=== PATIENT | male | born 1985 | race Two or more races ===

== ENCOUNTER 2016-11-11 06:35 | Outpatient (CLI) | payer OTHER ==
[~2016-11-11 06:35] MED LIST: BACL10TA2 PO; COPA1INJ SC; GABA-283 PO; ZITHTAB PO
[2016-11-11] MEDS ORDERED: methylPREDNISolone 1,000 MG, VIAL MATE ADAPTER 1 EACH in D5W 250 ML IV ONE (06:45)
[2016-11-12] MEDS ORDERED: METH1TAB40 PO (08:26)
== END 2016-11-11 08:15 | disposition home or self-care (01) ==
LOC: M INFU 06:35
PROVIDERS: ATTEND Psychiatry & Neurology Neurology
DX: G35 Multiple sclerosis (principal); F17.210 Nicotine dependence, cigarettes, uncomplicated; Z79.899 Other long term (current) drug therapy

== ENCOUNTER 2016-11-12 07:08 | Outpatient (CLI) | payer OTHER ==
[2016-11-12] MEDS ORDERED: methylPREDNISolone 1,000 MG, VIAL MATE ADAPTER 1 EACH in D5W 250 ML IV ONE (08:00)
[2016-11-12] MEDS ORDERED: METH1TAB40 PO (08:26)
== END 2016-11-12 08:30 | disposition home or self-care (01) ==
LOC: M INFU 07:08
PROVIDERS: ATTEND Psychiatry & Neurology Neurology
DX: G35 Multiple sclerosis (principal); F17.210 Nicotine dependence, cigarettes, uncomplicated; Z79.899 Other long term (current) drug therapy

== ENCOUNTER 2016-11-13 07:00 | Outpatient (CLI) | payer OTHER ==
[~2016-11-13] VITALS: Ht 167.6 cm; Wt 70.5 kg
[~2016-11-13 07:00] MED LIST changes: +METH1TAB40 PO; +methylPREDNISolone 1,000 MG, VIAL MATE ADAPTER 1 EACH in D5W 250 ML IV ONE
== END 2016-11-13 08:25 | disposition home or self-care (01) ==
LOC: M INFU 07:00
PROVIDERS: ATTEND Psychiatry & Neurology Neurology
DX: G35 Multiple sclerosis (principal); F17.210 Nicotine dependence, cigarettes, uncomplicated; Z79.899 Other long term (current) drug therapy

== ENCOUNTER 2016-11-14 07:03 | Outpatient (CLI) | payer OTHER ==
[~2016-11-14] VITALS: Ht 167.6 cm; Wt 70.5 kg
== END 2016-11-14 08:30 | disposition home or self-care (01) ==
LOC: M INFU 07:03
PROVIDERS: ATTEND Psychiatry & Neurology Neurology
DX: G35 Multiple sclerosis (principal); F17.210 Nicotine dependence, cigarettes, uncomplicated; Z79.899 Other long term (current) drug therapy

== ENCOUNTER 2016-11-15 06:52 | Outpatient (CLI) | payer OTHER ==
[~2016-11-15] VITALS: Ht 167.6 cm; Wt 70.5 kg
== END 2016-11-15 08:15 | disposition home or self-care (01) ==
LOC: M INFU 06:52
PROVIDERS: ATTEND Psychiatry & Neurology Neurology
DX: G35 Multiple sclerosis (principal); F17.210 Nicotine dependence, cigarettes, uncomplicated; Z79.899 Other long term (current) drug therapy

== ENCOUNTER → 2017-02-04 | Outpatient (CLI) | payer OTHER, MEDICAID ==
[~2017-02-04] MED LIST changes: -methylPREDNISolone 1,000 MG, VIAL MATE ADAPTER 1 EACH in D5W 250 ML IV ONE
--- NOTE | 2017-02-25 01:59 | ECWPNPC ---
PATIENT NAME: STEVE OCASIO : 1985 GENDER: MALE VISIT DATE: 02/04/2017 DISCHARGE DATE: 02/04/17 1400 VISIT LOCKED DATE TIME: PHYSICIAN: MESFIN WRIGHT RESOURCE: MESFIN WRIGHT REASON FOR APPOINTMENT 1. BACK PAIN HISTORY OF PRESENT ILLNESS NEW PATIENT CONSULT: WHEN DID YOUR PAIN FIRST START? . BRIEFLY DESCRIBE HOW YOUR PAIN STARTED? . HOW DOES YOUR PAIN CHANGE WITH TIME? . DOES YOUR PAIN AWAKEN YOU FROM SLEEP? . HOW MANY HOURS OF SLEEP DO YOU NORMALLY GET? . ANY DIAGNOSTIC TESTING? . FACILITY WHERE TESTS WERE DONE? ____. PAIN TREATMENT TREATMENT YES CANCER HAVE YOU EVER HAD ANY TYPE OF CANCER?NO NO. 32 Y/O MALE HERE PER REFERRAL OF DR. 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 PAIN SCREENING: PATIENT HAS A COMPLAINT OF ACUTE OR CHRONIC PAIN :YES FALL RISK SCREENING: SCREENING :NO FALLS IN THE PAST YEAR MILLER INVENTORY: QUESTIONNAIRE ASSESSEDYES SCORE VALUE CALCULATED YES SCORE:17 CURRENT MEDICATIONS TAKING GABAPENTIN 400 MG CAPSULE 1 CAPSULE ORALLY THREE TIMES A DAY TAKING BACLOFEN 10 MG TABLET 1 TABLET WITH FOOD OR MILK ORALLY THREE TIMES A DAY TAKING METHOCARBAMOL 500 MG TABLET 2 TABLET ORALLY BID NEEDED TAKING SOLU-MEDROL 500 MG SOLUTION RECONSTITUTED INJECTION , NOTES: TWICE A YEAR IN INFUSIONS TAKING COPAXONE 40 MG/ML SOLUTION PREFILLED SYRINGE 1 ML SUBCUTANEOUS THREE TIMES A WEEK MEDICATION LIST REVIEWED AND RECONCILED WITH THE PATIENT PAST MEDICAL HISTORY MULTIPLE SCLEROSIS BILATERAL LOWER EXTREMITY WEAKNESS LEFT HAND NUMBNESS ALLERGIES N.K.D.A. SURGICAL HISTORY NONE FAMILY HISTORY FATHER: 63 YRS, HAS COPD MOTHER: 61 YRS, HAS MS SOCIAL HISTORY GENERAL: TOBACCO USE ARE YOU A:CURRENT SMOKER HOW MANY CIGARETTES A DAY DO YOU SMOKE?6-10 HOW OFTEN DO YOU SMOKE CIGARETTES?EVERY DAY ARE YOU INTERESTED IN QUITTING?NOT READY TO QUIT COUNSELED THE PATIENT ON SMOKING EFFECTS, EDUCATION [id number]/03/2017 DISCUSSED THE NEED TO STOP SMOKING/ PT IS AWARE OF THE HAZARDS PATIENT COUNSELED ON THE DANGERS OF TOBACCO USE AND URGED TO QUIT:02/04/2017 YES ALCOHOL SCREENING POINTS2 INTERPRETATIONNEGATIVE CAFFEINE CAFFEINE USE?YES HOW OFTEN AND HOW MUCH? COFFEE EVERY DAY GNOSTICIST [id number] EPISCOPAL NO ALEVISM BELIEFS THAT WOULD IMPACT HEALTH CARE. PAIN CLINIC PFS, CLERGY, PUBLIC HEALTH REFERRALS PFS REFERRAL NEEDED?NO CLERGY REFERRAL NEEDED?NO PUBLIC HEALTH REFERRAL NEEDED?NO WAS THE PROVIDER NOTIFIED OF ANY PERTINENT INFO?NO HAS THE PATIENT BEEN EDUCATED REGARDING HIS/HER PLAN OF CARE?YES HAS THE PATIENT BEEN EDUCATED REGARDING PAIN, THE RISK FOR PAIN, THE IMPORTANCE OF EFFECTIVE PAIN MANAGEMENT, AND THE PAIN ASSESSMENT PROCESS?YES PATIENT: ____. ADVANCE DIRECTIVES HEALTH CARE PROXY?NO WOULD YOU LIKE MORE INFORMATION?NO DO YOU HAVE A DNR?NO WOULD YOU LIKE MORE INFORMATION?NO HOSPITALIZATION/MAJOR DIAGNOSTIC PROCEDURE OVERNIGHT IN THE ER 2014 REVIEW OF SYSTEMS REVIEWED BY: PROVIDER: MESFIN RODRIGUEZ . CONSTITUTIONAL: ANY CHANGE IN YOUR MEDICAL CONDITION? NO . CHILLS NO . FEVER NO . INFECTION: DO YOU HAVE NEW INFECTIONS? NO . DO YOU HAVE HISTORY OF MRSA? NO . MUSCULOSKELETAL: ANY NEW PATTERNS OF PAIN OR NUMBNESS? PAIN FROM THE KNEES DOWN . SYTEMIC LUPUS NO . GASTROENTEROLOGY: ANY NEW CHANGE IN BOWEL CONTROL? NO . BARRETTS ESOPHAGUS NO . CIRRHOSIS NO . HEPATITIS NO . LIVER FAILURE NO . ACID REFLUX NO . UNEXPLAINED WEIGHT LOSS NO . GENITOURINARY: ANY NEW CHANGE IN BLADDER CONTROL? NO . IS THERE A CHANCE YOU COULD BE ? NO . HEMATOLOGY/LYMPH: DO YOU TAKE ANY BLOOD THINNERS? (FOR EXAMPLE- COUMADIN, PLAVIX, AGGRENOX, PLATEL, PRADAXA, OR XARELTO) NO . WHEN WAS YOUR LAST DOSE? DATE: TIME: . LOW PLATELET COUNT NO . SICKLE CELL DISEASE NO . VON WILLIEBRANDS NO . FACTOR V LEIDEN NO . THALLASEMIA NO . ANEMIA NO . EASY BRUISING NO . NEUROLOGY: HAVE YOU FALLEN IN THE PAST 6 MONTHS? NO . ANY NEW EXTREMITY NUMBNESS OR WEAKNESS? NO . HEAD INJURY NO . DEMENTIA NO . CEREBRAL PALSY NO . MULTIPLE SCLEROSIS NO . DIZZINESS NO . HEADACHE NO . STROKES NO . VERTIGO NO . CARDIOLOGY: DO YOU HAVE A PACEMAKER OR DEFIBRILLATOR? NO . ANGINA NO . HEART ATTACK NO . HEART SURGERY NO . CONGESTIVE HEART FAILURE/FLUID OVERLOAD NO . CHEST PAIN NO . HIGH BLOOD PRESSURE NO . IRREGULAR HEART BEAT NO . RESPIRATORY: HAVE YOU BEEN SICK IN THE PAST WEEK? NO . FEVER NO . FLU LIKE SYMPTOMS? NO . CPAP NO . BYPAP NO . ASTHMA NO . EMPHYSEMA NO . CHRONIC LUNG DISEASES NO . SHORTNESS OF BREATH ON EXERTION NO . DO YOU USE ANY TYPE OF TOBACCO (SMOKE, SMOKELESS, CHEW)? YES . COUGH NO . SNORING NO . INTEGUMENTARY: DO YOU HAVE ANY RASHES OR OPEN SORES? NO . ALLERGIC/IMMUNO: ARE YOU ALLERGIC TO SHELLFISH OR IV DYE? NO . ANY NEW ALLERGIES? NO . PSYCHIATRIC: DO YOU HAVE THOUGHTS OF HURTING YOURSELF OR SOMEONE ELSE? NO . ARE YOU ABUSED, NEGLECTED, OR IN AN UNSAFE ENVIRONMENT? NO . ENDOCRINOLOGY: ARE YOU DIABETIC? NO . THYROID DISORDER NO . OTHER: DO YOU NEED ANY PRESCRIPTIONS? NO . IF YES, PLEASE LIST: ____ . ANY NEW PROBLEMS WITH YOUR MEDICATIONS? NO . WHEN DID YOU LAST EAT? ____ . WHEN DID YOU LAST DRINK? ____ . WHAT DID YOU LAST DRINK? ____ . NAME OF PERSON DRIVING YOU HOME? ____ . DO YOU HAVE ANY OTHER QUESTIONS OR CONCERNS NO . VITAL SIGNS WT 145 LBS, HT 66 IN, BMI 23.40 INDEX, BP 114/72 MM HG, HR 68 /MIN, RR 18 /MIN, TEMP 99.0 F, OXYGEN SAT % 99%, NA INITIALS SC 12:59, REVIEWED BY: NL. EXAMINATION GENERAL EXAMINATION: GENERAL APPEARANCE:AWAKE,ALERT,WALKS ITH ASSIST OF A CANE. PSYCHAFFECT NORMAL. LUNGS:LUNG PELAEZ ARE CLEAR TO AUSCULTATION BILATERALLY. GOOD MOVEMENT OF AIR. HEART:S1, S2 IN A REGULAR RATE AND RHYTHM. NO SIGNIFICANT MURMURS, RUBS OR GALLOPS NOTED. ABDOMEN:NORMAL WITHOUT TENDERNESS, MASSES, OR MEGALY. LUMBAR SACRAL SPINEMUSCLE STRENGTH TESTING 5/5 BILATERAL LOWER EXTREMITIES.SPECIFIC POINT TENDERNESS OVER RIGHT SIJ. NEUROLOGIC EXAM:DTRS 4/4 BILAT. LOWER EXTREMITIES. DIAGNOSTIC:MRI L/S [id number]-REVIEWED. 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 ADDITIONAL INFORMATION GIVEN.. PROCEDURE CODES FA211 ESTABILISHED PATIENT [facility] CHARGE DISPOSITION & COMMUNICATION FOLLOW UP 4 WEEKS ELECTRONICALLY SIGNED BY MICHAEL LARIOS ON 02/24/2017 AT 07:02 PM EDT DISCLAIMER : THIS IS A VISIT SUMMARY EXTRACTED FROM THE [employer] CHART. IT IS NOT A COPY OF THE [employer] PROGRESS NOTE. CORWIN
== END ==
LOC: M PAIN 13:00
PROVIDERS: ATTEND Nurse Practitioner Family
DX: G89.29 Other chronic pain (principal); M53.3 Sacrococcygeal disorders, not elsewhere classified; G35 Multiple sclerosis; G57.93 Unspecified mononeuropathy of bilateral lower limbs; M54.5 Low back pain; F17.210 Nicotine dependence, cigarettes, uncomplicated; Z79.899 Other long term (current) drug therapy

== ENCOUNTER 2017-05-26 08:52 | Outpatient (CLI) | payer OTHER ==
[2017-05-26] MEDS: methylPREDNISolone 1,000 MG, VIAL MATE ADAPTER 1 EACH in D5W 250 ML IV (09:14)
== END 2017-05-26 10:25 | disposition home or self-care (01) ==
LOC: M INFU 08:52
DX: G35 Multiple sclerosis (principal); Z79.899 Other long term (current) drug therapy
CPT/HCPCS: 96365

== ENCOUNTER 2017-05-27 07:42 | Outpatient (CLI) | payer OTHER ==
[2017-05-27] MEDS: methylPREDNISolone 1,000 MG, VIAL MATE ADAPTER 1 EACH in D5W 250 ML IV (07:50)
== END 2017-05-27 09:15 | disposition home or self-care (01) ==
LOC: M INFU 07:42
DX: G35 Multiple sclerosis (principal); Z79.899 Other long term (current) drug therapy
CPT/HCPCS: 96365

== ENCOUNTER 2017-05-28 07:47 | Outpatient (CLI) | payer OTHER ==
[2017-05-28] MEDS: methylPREDNISolone 1,000 MG, VIAL MATE ADAPTER 1 EACH in D5W 250 ML IV (08:02)
== END 2017-05-28 09:20 | disposition home or self-care (01) ==
LOC: M INFU 07:47
DX: G35 Multiple sclerosis (principal); Z79.899 Other long term (current) drug therapy
CPT/HCPCS: 96365

== ENCOUNTER 2017-05-29 07:22 | Outpatient (CLI) | payer OTHER ==
[2017-05-29] MEDS: methylPREDNISolone 1,000 MG, VIAL MATE ADAPTER 1 EACH in D5W 250 ML IV (07:46)
== END 2017-05-29 09:00 | disposition home or self-care (01) ==
LOC: M INFU 07:22
DX: G35 Multiple sclerosis (principal); Z79.899 Other long term (current) drug therapy
CPT/HCPCS: 96365

== ENCOUNTER 2017-05-30 07:35 | Outpatient (CLI) | payer OTHER ==
[2017-05-30] MEDS: methylPREDNISolone 1,000 MG, VIAL MATE ADAPTER 1 EACH in D5W 250 ML IV (07:47)
== END 2017-05-30 09:00 | disposition home or self-care (01) ==
LOC: M INFU 07:35
DX: G35 Multiple sclerosis (principal); Z79.899 Other long term (current) drug therapy
CPT/HCPCS: 96365

== ENCOUNTER → 2017-06-04 | Outpatient (CLI) | payer OTHER, MEDICAID | LOC: M PAIN 09:30 | DX: G89.29 Other chronic pain (principal); M53.3 Sacrococcygeal disorders, not elsewhere classified; G35 Multiple sclerosis; G57.93 Unspecified mononeuropathy of bilateral lower limbs; F17.200 Nicotine dependence, unspecified, uncomplicated; Z79.899 Other long term (current) drug therapy | CPT/HCPCS: G0463 ==

== ENCOUNTER → 2017-07-28 | Outpatient (REF) | payer OTHER, MEDICAID ==
[2017-07-28 18:11] LABS: ALBUMIN 4.1 GM/DL (3.2-5.2); ALBUMIN/GLOBULIN RATIO 1.32 (1.00-1.93); ALKALINE PHOSPHATASE 58 U/L (45-117); ALT/SGPT 20 U/L (12-78); ANION GAP 7 MEQ/L (8-16); AST/SGOT 11 U/L (7-37); BILIRUBIN,TOTAL 0.8 MG/DL (0.2-1.0); BLOOD UREA NITROGEN 14 MG/DL (7-18); CALCIUM LEVEL 8.7 MG/DL (8.5-10.1); CARBON DIOXIDE LEVEL 28 MEQ/L (21-32); CHLORIDE LEVEL 106 MEQ/L (98-107); CREATININE FOR GFR 0.84 MG/DL (0.70-1.30); FOLATE 7.2 NG/ML; GLOMERULAR FILTRATION RATE > 60.0 (>60); GLUCOSE, FASTING 81 MG/DL (70-100); POTASSIUM SERUM 4.4 MEQ/L (3.5-5.1); SODIUM LEVEL 141 MEQ/L (136-145); TOTAL PROTEIN 7.2 GM/DL (6.4-8.2)
[2017-07-28 18:29] LABS: BASO # 0.1 10^3/uL (0.0-0.2); EOS # 0.1 10^3/uL (0.0-0.50); EOS % 1.1 % (0.0-3.0); HEMATOCRIT 41.8 % (42.0-52.0); IMMATURE GRANULOCYTE % 0.3 % (0-3.0); LYMPH # 2.1 10^3/uL (1.5-4.5); LYMPH % 29.5 % (24.0-44.0); MEAN CORPUSCULAR HEMOGLOBIN 30.2 pg (27.0-33.0); MEAN CORPUSCULAR HGB CONC 33.5 g/dl (32.0-36.5); MEAN CORPUSCULAR VOLUME 90.3 fl (80.0-96.0); MONO # 0.4 10^3/uL (0.0-0.8); MONO % 5.6 % (0.0-5.0); NEUTROPHILS # 4.5 10^3/uL (1.8-7.7); NEUTROPHILS % 62.5 % (36.0-66.0); PLATELET COUNT, AUTOMATED 235 10^3/uL (150-450); RED BLOOD COUNT 4.63 10^6/uL (4.30-6.10); WHITE BLOOD COUNT 7.3 10^3/uL (4.0-10.0)
[2017-07-28 19:44] LABS: VITAMIN B12 LEVEL 479 PG/ML
== END ==
LOC: M LABNEURO 13:51
DX: G35 Multiple sclerosis (principal)

== ENCOUNTER → 2017-08-29 | Outpatient (CLI) | payer OTHER, MEDICAID | END | disposition home or self-care (01) | LOC: M PAIN 11:00 | DX: G89.29 Other chronic pain (principal); M53.3 Sacrococcygeal disorders, not elsewhere classified; G35 Multiple sclerosis; G57.93 Unspecified mononeuropathy of bilateral lower limbs; Z79.899 Other long term (current) drug therapy; F17.210 Nicotine dependence, cigarettes, uncomplicated | CPT/HCPCS: G0463 ==

== ENCOUNTER 2017-10-29 14:50 | Outpatient (CLI) | payer MEDICARE, MEDICAID ==
[2017-10-29] MEDS: methylPREDNISolone 1,000 MG, VIAL MATE ADAPTER 1 EACH in D5W 250 ML IV (15:21)
== END 2017-10-29 17:05 | disposition home or self-care (01) ==
LOC: M INFU 14:50
DX: G35 Multiple sclerosis (principal); Z79.899 Other long term (current) drug therapy
CPT/HCPCS: J2930

== ENCOUNTER 2017-10-30 15:23 | Outpatient (CLI) | payer MEDICARE, MEDICAID, OTHER ==
[2017-10-30] MEDS: methylPREDNISolone 1,000 MG, VIAL MATE ADAPTER 1 EACH in D5W 250 ML IV (15:34)
== END 2017-10-30 16:25 | disposition home or self-care (01) ==
LOC: M INFU 15:23
DX: G35 Multiple sclerosis (principal); Z79.899 Other long term (current) drug therapy
CPT/HCPCS: J2930

== ENCOUNTER 2017-10-31 15:17 | Outpatient (CLI) | payer MEDICARE, MEDICAID, OTHER ==
[2017-10-31] MEDS: methylPREDNISolone 1,000 MG, VIAL MATE ADAPTER 1 EACH in D5W 250 ML IV (15:35)
== END 2017-10-31 16:50 | disposition home or self-care (01) ==
LOC: M INFU 15:17
DX: G35 Multiple sclerosis (principal); Z79.899 Other long term (current) drug therapy
CPT/HCPCS: J2930

== ENCOUNTER 2017-11-01 10:08 | Outpatient (CLI) | payer MEDICARE, MEDICAID ==
[2017-11-01] MEDS: methylPREDNISolone 1,000 MG, VIAL MATE ADAPTER 1 EACH in D5W 250 ML IV (10:46)
== END 2017-11-01 12:20 | disposition home or self-care (01) ==
LOC: M OPCLI4PR 10:08 → M PED 10:13 → M OPCLI4PR 12:20
DX: G35 Multiple sclerosis (principal); Z79.899 Other long term (current) drug therapy
CPT/HCPCS: J2930

== ENCOUNTER 2017-11-02 09:49 | Outpatient (CLI) | payer MEDICARE, MEDICAID ==
[2017-11-02] MEDS: methylPREDNISolone 1,000 MG, VIAL MATE ADAPTER 1 EACH in D5W 250 ML IV (10:12)
== END 2017-11-02 11:23 | disposition home or self-care (01) ==
LOC: M OPCLI4PR 09:49 → M PED 10:03 → M OPCLI4PR 11:23
DX: G35 Multiple sclerosis (principal); Z79.899 Other long term (current) drug therapy
CPT/HCPCS: J2930

== ENCOUNTER → 2017-11-21 | Outpatient (CLI) | payer MEDICARE, MEDICAID | LOC: M PAIN 10:30 | DX: M53.3 Sacrococcygeal disorders, not elsewhere classified (principal); G35 Multiple sclerosis; G57.93 Unspecified mononeuropathy of bilateral lower limbs; G89.29 Other chronic pain; F17.200 Nicotine dependence, unspecified, uncomplicated; Z79.899 Other long term (current) drug therapy | CPT/HCPCS: G0463 ==

== ENCOUNTER → 2018-02-23 | Outpatient (CLI) | payer MEDICARE, MEDICAID | LOC: M PAIN 10:15 | DX: G89.29 Other chronic pain (principal); M53.3 Sacrococcygeal disorders, not elsewhere classified; G35 Multiple sclerosis; G57.93 Unspecified mononeuropathy of bilateral lower limbs; F17.210 Nicotine dependence, cigarettes, uncomplicated; R20.0 Anesthesia of skin; Z79.899 Other long term (current) drug therapy | CPT/HCPCS: G0463 ==

== ENCOUNTER 2018-04-08 14:52 | Outpatient (CLI) | payer MEDICARE, MEDICAID ==
[2018-04-08] MEDS: methylPREDNISolone 1,000 MG, VIAL MATE ADAPTER 1 EACH in D5W 250 ML IV (15:00)
== END 2018-04-08 16:30 | disposition home or self-care (01) ==
LOC: M INFU 14:52
DX: G35 Multiple sclerosis (principal)
CPT/HCPCS: J2930

== ENCOUNTER 2018-04-10 13:01 | Outpatient (CLI) | payer MEDICARE ==
[2018-04-10] MEDS: methylPREDNISolone 1,000 MG, VIAL MATE ADAPTER 1 EACH in D5W 250 ML IV (13:09)
== END 2018-04-10 14:30 | disposition home or self-care (01) ==
LOC: M INFU 13:01
DX: G35 Multiple sclerosis (principal)
CPT/HCPCS: J2930

== ENCOUNTER 2018-04-11 10:25 | Outpatient (CLI) | payer MEDICARE ==
[2018-04-11] MEDS: methylPREDNISolone 1,000 MG, VIAL MATE ADAPTER 1 EACH in D5W 250 ML IV (12:38)
== END 2018-04-11 14:11 | disposition home or self-care (01) ==
LOC: M OPCLI4PV 10:25 → M MS4PR 12:16 → M OPCLI4PV 14:11
DX: G35 Multiple sclerosis (principal)
CPT/HCPCS: J2930

== ENCOUNTER 2018-04-12 10:42 | Outpatient (CLI) | payer MEDICARE ==
[2018-04-12] MEDS: methylPREDNISolone 1,000 MG, VIAL MATE ADAPTER 1 EACH in D5W 250 ML IV (12:13)
== END 2018-04-12 14:18 | disposition home or self-care (01) ==
LOC: M OPCLI4PV 10:42 → M MS4PR 11:03 → M OPCLI4PV 14:18
DX: G35 Multiple sclerosis (principal)
CPT/HCPCS: J2930

== ENCOUNTER 2018-04-13 15:11 | Outpatient (CLI) | payer MEDICARE ==
[2018-04-13] MEDS: methylPREDNISolone 1,000 MG, VIAL MATE ADAPTER 1 EACH in D5W 250 ML IV (15:22)
== END 2018-04-13 16:30 | disposition home or self-care (01) ==
LOC: M INFU 15:11
DX: G35 Multiple sclerosis (principal)
CPT/HCPCS: J2930

== ENCOUNTER → 2018-12-07 | Outpatient (CLI) | payer MEDICARE, MEDICAID ==
[~2018-12-07] MED LIST changes: +DULO30CA9 PO; -GABA-283 PO; +GABA-845 PO; +MEDICAL MARIJUANA INH; +MYSO50TA5 PO
--- NOTE | 2018-12-07 23:37 | ECWPNPC ---
PATIENT NAME: STEVE OCASIO : 1985 GENDER: MALE VISIT DATE: 12/07/2018 DISCHARGE DATE: 12/07/18 1121 VISIT LOCKED DATE TIME: PHYSICIAN: MESFIN WRIGHT RESOURCE: MESFIN WRIGHT REASON FOR APPOINTMENT 1. BACK HISTORY OF PRESENT ILLNESS HISTORY OF PRESENT ILLNESS: HERE FOR F/U OF CHRONIC LBP WITH HISTORY OF MS.STARTED ON CYMBALTA 30MG DAILY AND STATES THIS IS HELPING WITH IMPROVED SLEEP.USING MEDICAL MARIJUANA WITH DR. MARTIN AND FINDING THIS HELPFUL.RATING PAIN VAS 6/10. PAIN THE PATIENT DESCRIBES THE PAIN... THE PATIENT DESCRIBES THE PAIN... THE PATIENT DESCRIBES THE PAIN... THE PATIENT DESCRIBES THE PAIN... THE PATIENT DESCRIBES THE PAIN... THE PATIENT DESCRIBES THE PAIN... FALL RISK SCREENING: SCREENING :NO FALLS REPORTED IN THE LAST YEAR CURRENT MEDICATIONS TAKING SOLU-MEDROL 500 MG SOLUTION RECONSTITUTED INJECTION , NOTES: TWICE A YEAR IN INFUSIONS LAST IN MAY TAKING COPAXONE 40 MG/ML SOLUTION PREFILLED SYRINGE 1 ML SUBCUTANEOUS THREE TIMES A WEEK TAKING GABAPENTIN 400 MG CAPSULE 1 CAPSULE ORALLY THREE TIMES A DAY TAKING BACLOFEN 10 MG TABLET 1 TABLET WITH FOOD OR MILK ORALLY THREE TIMES A DAY TAKING METHOCARBAMOL 500 MG TABLET 1-2 TABLET ORALLY BID NEEDED TAKING PRIMIDONE 50 MG TABLET ORALLY DAILY TAKING CYMBALTA 20 MG CAPSULE DELAYED RELEASE PARTICLES 1 CAPSULE ORALLY DAILY MEDICATION LIST REVIEWED AND RECONCILED WITH THE PATIENT PAST MEDICAL HISTORY MULTIPLE SCLEROSIS BILATERAL LOWER EXTREMITY WEAKNESS LEFT HAND NUMBNESS ALLERGIES N.K.D.A. SURGICAL HISTORY NONE FAMILY HISTORY FATHER: 63 YRS, HAS COPD MOTHER: 61 YRS, HAS MS SOCIAL HISTORY GENERAL: TOBACCO USE ARE YOU A:CURRENT SMOKER ARE YOU INTERESTED IN QUITTING?NOT READY TO QUIT COUNSELED THE PATIENT ON SMOKING EFFECTS, EDUCATION [id number]/05/2019 HOW MANY CIGARETTES A DAY DO YOU SMOKE?6-10 HOW OFTEN DO YOU SMOKE CIGARETTES?EVERY DAY PATIENT COUNSELED ON THE DANGERS OF TOBACCO USE AND URGED TO QUIT:12/07/2018 PAIN CLINIC PFS, CLERGY, PUBLIC HEALTH REFERRALS PFS REFERRAL NEEDED?NO CLERGY REFERRAL NEEDED?NO PUBLIC HEALTH REFERRAL NEEDED?NO WAS THE PROVIDER NOTIFIED OF ANY PERTINENT INFO?NO HAS THE PATIENT BEEN EDUCATED REGARDING HIS/HER PLAN OF CARE?YES HAS THE PATIENT BEEN EDUCATED REGARDING PAIN, THE RISK FOR PAIN, THE IMPORTANCE OF EFFECTIVE PAIN MANAGEMENT, AND THE PAIN ASSESSMENT PROCESS?YES CAFFEINE CAFFEINE USE?YES HOW OFTEN AND HOW MUCH? COFFEE EVERY DAY ADVANCE DIRECTIVE ADVANCE DIRECTIVE DISCUSSED WITH PATIENT:YES PT HAS NO ADVANCED DIRECTIVES, DECLINES INFORMATION OR ASSISTANCE AT THIS TIME JAIN [id number] [employer] NO QUAKER BELIEFS THAT WOULD IMPACT HEALTH CARE. LANGUAGE LANGUAGES SPOKEN:MALAY ALCOHOL SCREENING DID YOU HAVE A DRINK CONTAINING ALCOHOL IN THE PAST YEAR?YES HOW OFTEN DID YOU HAVE A DRINK CONTAINING ALCOHOL IN THE PAST YEAR?TWO TO FOUR TIMES A MONTH (2 POINTS) POINTS2 INTERPRETATIONNEGATIVE LEARNING BARRIERS / SPECIAL NEEDS BARRIERS TO LEARNING?NO HEARING IMPAIRED?NO VISION IMPAIRED?NO COGNITIVELY IMPAIRED?NO READINESS TO LEARN?YES REVIEWED WITH PT 02/23/18 1036 BVREVIEWED WITH PT 12/07/18 1038 LAS. HOSPITALIZATION/MAJOR DIAGNOSTIC PROCEDURE OVERNIGHT IN THE ER 2014 REVIEW OF SYSTEMS REVIEWED BY: PROVIDER: MESFIN RODRIGUEZ . CONSTITUTIONAL: ANY CHANGE IN YOUR MEDICAL CONDITION? NO . CHILLS NO . FEVER NO . INFECTION: DO YOU HAVE NEW INFECTIONS? NO . DO YOU HAVE HISTORY OF MRSA? NO . MUSCULOSKELETAL: ANY NEW PATTERNS OF PAIN OR NUMBNESS? NO . GASTROENTEROLOGY: ANY NEW CHANGE IN BOWEL CONTROL? NO . GENITOURINARY: ANY NEW CHANGE IN BLADDER CONTROL? NO . IS THERE A CHANCE YOU COULD BE ? NO . HEMATOLOGY/LYMPH: DO YOU TAKE ANY BLOOD THINNERS? (FOR EXAMPLE- COUMADIN, PLAVIX, AGGRENOX, PLATEL, PRADAXA, OR XARELTO) NO . WHEN WAS YOUR LAST DOSE? DATE: TIME: . NEUROLOGY: HAVE YOU FALLEN IN THE PAST 12 MONTHS? NO . ANY NEW EXTREMITY NUMBNESS OR WEAKNESS? NO . CARDIOLOGY: DO YOU HAVE A PACEMAKER OR DEFIBRILLATOR? NO . RESPIRATORY: HAVE YOU BEEN SICK IN THE PAST WEEK? NO . FEVER NO . FLU LIKE SYMPTOMS? NO . COUGH NO . INTEGUMENTARY: DO YOU HAVE ANY RASHES OR OPEN SORES? NO . ALLERGIC/IMMUNO: ARE YOU ALLERGIC TO IV DYE? NO . ANY NEW ALLERGIES? NO . PSYCHIATRIC: DO YOU HAVE THOUGHTS OF HURTING YOURSELF OR SOMEONE ELSE? NO . ARE YOU ABUSED, NEGLECTED, OR IN AN UNSAFE ENVIRONMENT? NO . ENDOCRINOLOGY: ARE YOU DIABETIC? NO . OTHER: DO YOU NEED ANY PRESCRIPTIONS? NO . IF YES, PLEASE LIST: ____ . ANY NEW PROBLEMS WITH YOUR MEDICATIONS? NO . WHEN DID YOU LAST EAT? ____ . WHEN DID YOU LAST DRINK? ____ . WHAT DID YOU LAST DRINK? ____ . NAME OF PERSON DRIVING YOU HOME? ____ . DO YOU HAVE ANY OTHER QUESTIONS OR CONCERNS NO . VITAL SIGNS WT 148.2 LBS, HT 66 IN, BMI 23.92 INDEX, BP 121/73 MM HG, HR 74 /MIN, RR 18 /MIN, TEMP 98.1 F, OXYGEN SAT % 100%, SAFE IN ENV? (Y/N) YES, NA INITIALS AW 1049, REVIEWED BY: VANE. EXAMINATION GENERAL EXAMINATION: GENERALAWAKE,ALERT,WALKS WITH ANTALGIC GAIT AND ASSIST OF A CANE. PSYCHAFFECT NORMAL. LUNGS:LUNG PELAEZ ARE CLEAR TO AUSCULTATION BILATERALLY. GOOD MOVEMENT OF AIR. HEART:S1, S2 IN A REGULAR RATE AND RHYTHM. NO SIGNIFICANT MURMURS, RUBS OR GALLOPS NOTED. DIAGNOSTIC:MRI L/S [id number]-REVIEWED. ASSESSMENTS OTHER CHRONIC PAIN - G89.29 (PRIMARY) TREATMENT OTHER CHRONIC PAIN REFILL CYMBALTA CAPSULE DELAYED RELEASE PARTICLES, 20 MG, 1 CAPSULE, ORALLY, DAILY, 30 DAY(S), 30 CAPSULE, REFILLS 5 PROCEDURE CODES FA211 ESTABILISHED PATIENT [facility] CHARGE DISPOSITION & COMMUNICATION FOLLOW UP 6 MONTHS (REASON: ED MGMNT) ELECTRONICALLY SIGNED BY MICHAEL KHAN ON 12/07/2018 AT 01:20 PM EDT DISCLAIMER : THIS IS A VISIT SUMMARY EXTRACTED FROM THE [facility] CHART. IT IS NOT A COPY OF THE [facility] PROGRESS NOTE. CORWIN
== END ==
LOC: M PAIN 10:15
PROVIDERS: ATTEND Nurse Practitioner Family
DX: G89.29 Other chronic pain (principal); G35 Multiple sclerosis; M62.81 Muscle weakness (generalized); R20.0 Anesthesia of skin; F17.210 Nicotine dependence, cigarettes, uncomplicated; Z79.899 Other long term (current) drug therapy

== ENCOUNTER → 2019-06-09 | Outpatient (CLI) | payer MEDICARE ==
--- NOTE | 2019-06-10 05:25 | ECWPNPC ---
PATIENT NAME: STEVE OCASIO : 1985 GENDER: MALE VISIT DATE: 06/09/2019 DISCHARGE DATE: 06/09/19 1052 VISIT LOCKED DATE TIME: PHYSICIAN: MESFIN WRIGHT RESOURCE: MESFIN WRIGHT REASON FOR APPOINTMENT 1. MED MGMT HISTORY OF PRESENT ILLNESS HISTORY OF PRESENT ILLNESS: HERE FOR F/U OF CHRONIC LBP WITH HISTORY OF MS.STARTED ON CYMBALTA 30MG DAILY AND STATES THIS IS HELPING WITH IMPROVED SLEEP.USING MEDICAL MARIJUANA WITH DR. MARTIN AND FINDING THIS HELPFUL.RATING PAIN VAS 5/10. PAIN THE PATIENT DESCRIBES THE PAIN... FALL RISK SCREENING: SCREENING :NO FALLS REPORTED IN THE LAST YEAR CURRENT MEDICATIONS TAKING COPAXONE 40 MG/ML SOLUTION PREFILLED SYRINGE 1 ML SUBCUTANEOUS THREE TIMES A WEEK TAKING GABAPENTIN 400 MG CAPSULE 1 CAPSULE ORALLY THREE TIMES A DAY TAKING BACLOFEN 10 MG TABLET 1 TABLET WITH FOOD OR MILK ORALLY THREE TIMES A DAY TAKING METHOCARBAMOL 500 MG TABLET 1-2 TABLET ORALLY BID NEEDED TAKING PRIMIDONE 50 MG TABLET ORALLY BID TAKING CYMBALTA 20 MG CAPSULE DELAYED RELEASE PARTICLES 1 CAPSULE ORALLY DAILY NOT-TAKING SOLU-MEDROL 500 MG SOLUTION RECONSTITUTED INJECTION , NOTES: TWICE A YEAR IN INFUSIONS MEDICATION LIST REVIEWED AND RECONCILED WITH THE PATIENT PAST MEDICAL HISTORY MULTIPLE SCLEROSIS BILATERAL LOWER EXTREMITY WEAKNESS LEFT HAND NUMBNESS ALLERGIES N.K.D.A. SURGICAL HISTORY NONE FAMILY HISTORY FATHER: 63 YRS, HAS COPD MOTHER: 61 YRS, HAS MS SOCIAL HISTORY GENERAL: TOBACCO USE ARE YOU A:CURRENT SMOKER ARE YOU INTERESTED IN QUITTING?NOT READY TO QUIT COUNSELED THE PATIENT ON SMOKING EFFECTS, EDUCATION [id number]/05/2020 HOW MANY CIGARETTES A DAY DO YOU SMOKE?6-10 HOW OFTEN DO YOU SMOKE CIGARETTES?EVERY DAY PATIENT COUNSELED ON THE DANGERS OF TOBACCO USE AND URGED TO QUIT:06/09/2019 PAIN CLINIC PFS, CLERGY, PUBLIC HEALTH REFERRALS PFS REFERRAL NEEDED?NO CLERGY REFERRAL NEEDED?NO PUBLIC HEALTH REFERRAL NEEDED?NO WAS THE PROVIDER NOTIFIED OF ANY PERTINENT INFO?NO HAS THE PATIENT BEEN EDUCATED REGARDING HIS/HER PLAN OF CARE?YES HAS THE PATIENT BEEN EDUCATED REGARDING PAIN, THE RISK FOR PAIN, THE IMPORTANCE OF EFFECTIVE PAIN MANAGEMENT, AND THE PAIN ASSESSMENT PROCESS?YES LATEX QUESTIONNAIRE LATEX ALLERGY : HAVE YOU EVER DEVELOPED ANY TYPE OF REACTION AFTER HANDLING LATEX PRODUCTS SUCH RUBBER GLOVES, CONDOMS, DIAPHRAGMS, BALLOONS, SOCKS, OR UNDERWEAR?NO LATEX ALLERGY : HAVE YOU EVER DEVELOPED ANY TYPE OF REACTION DURING OR AFTER DENTAL APPOINTMENT, VAGINAL/RECTAL EXAMINATION, SURGICAL PROCEDURE, OR ANY OTHER EXPOSURE?NO LATEX RISK : HAVE YOU EVER HAD ANY DIFFICULTY BREATHING OR HIVES AFTER EATING OR HANDLING ANY FRUITS, OR VEGETABLES; SUCH KIWI, BANANAS, STONE FRUITS, OR CHESTNUTSNO LATEX RISK : DO YOU HAVE A PREVIOUS PERSONAL HISTORY OF MORE THAN NINE SURGERIES, SPINA BIFIDA, OR REPEATED CATHERIZATIONS? NO LATEX RISK : ARE YOU FREQUENTLY EXPOSED TO LATEX PRODUCTS IN YOUR OCCUPATION?NO DATE ASKED : 06/09/2019 CAFFEINE CAFFEINE USE?YES HOW OFTEN AND HOW MUCH? COFFEE EVERY DAY ADVANCE DIRECTIVE ADVANCE DIRECTIVE DISCUSSED WITH PATIENT:YES 06/09/2019 PT HAS NO ADVANCED DIRECTIVES, DECLINES INFORMATION OR ASSISTANCE AT THIS TIME. JS [employer]AISM [id number] [employer] NO PROTESTANT BELIEFS THAT WOULD IMPACT HEALTH CARE. LANGUAGE LANGUAGES SPOKEN:PORTUGUESE ALCOHOL SCREENING DID YOU HAVE A DRINK CONTAINING ALCOHOL IN THE PAST YEAR?YES HOW OFTEN DID YOU HAVE A DRINK CONTAINING ALCOHOL IN THE PAST YEAR?TWO TO FOUR TIMES A MONTH (2 POINTS) POINTS2 INTERPRETATIONNEGATIVE RECREATIONAL DRUG USE DRUG USE?YES MARIJUANA LEARNING BARRIERS / SPECIAL NEEDS BARRIERS TO LEARNING?NO HEARING IMPAIRED?NO VISION IMPAIRED?NO COGNITIVELY IMPAIRED?NO READINESS TO LEARN?YES REVIEWED WITH PT 02/23/18 1036 BVREVIEWED WITH PT 12/07/18 1038 LASREVIEWED WITH PATIENT 06/09/2019 1024 JS. HOSPITALIZATION/MAJOR DIAGNOSTIC PROCEDURE OVERNIGHT IN THE ER 2014 REVIEW OF SYSTEMS REVIEWED BY: PROVIDER: MESFIN RODRIGUEZ . CONSTITUTIONAL: ANY CHANGE IN YOUR MEDICAL CONDITION? NO . CHILLS NO . FEVER NO . INFECTION: DO YOU HAVE NEW INFECTIONS? NO . DO YOU HAVE HISTORY OF MRSA? NO . MUSCULOSKELETAL: ANY NEW PATTERNS OF PAIN OR NUMBNESS? NO . GASTROENTEROLOGY: ANY NEW CHANGE IN BOWEL CONTROL? NO . GENITOURINARY: ANY NEW CHANGE IN BLADDER CONTROL? NO . IS THERE A CHANCE YOU COULD BE ? NO . HEMATOLOGY/LYMPH: DO YOU TAKE ANY BLOOD THINNERS? (FOR EXAMPLE- COUMADIN, PLAVIX, AGGRENOX, PLATEL, PRADAXA, OR XARELTO) NO . WHEN WAS YOUR LAST DOSE? DATE: TIME: . NEUROLOGY: HAVE YOU FALLEN IN THE PAST 12 MONTHS? NO . ANY NEW EXTREMITY NUMBNESS OR WEAKNESS? NO . CARDIOLOGY: DO YOU HAVE A PACEMAKER OR DEFIBRILLATOR? NO . RESPIRATORY: HAVE YOU BEEN SICK IN THE PAST WEEK? NO . FEVER NO . FLU LIKE SYMPTOMS? NO . COUGH NO . INTEGUMENTARY: DO YOU HAVE ANY RASHES OR OPEN SORES? NO . ALLERGIC/IMMUNO: ARE YOU ALLERGIC TO IV DYE? NO . ANY NEW ALLERGIES? NO . PSYCHIATRIC: DO YOU HAVE THOUGHTS OF HURTING YOURSELF OR SOMEONE ELSE? NO . ARE YOU ABUSED, NEGLECTED, OR IN AN UNSAFE ENVIRONMENT? NO . ENDOCRINOLOGY: ARE YOU DIABETIC? NO . OTHER: DO YOU NEED ANY PRESCRIPTIONS? NO . IF YES, PLEASE LIST: ____ . ANY NEW PROBLEMS WITH YOUR MEDICATIONS? NO . WHEN DID YOU LAST EAT? ____06/09/19 0730 . WHEN DID YOU LAST DRINK? ____06/09/19 0900 . WHAT DID YOU LAST DRINK? ____WATER . NAME OF PERSON DRIVING YOU HOME? ____KENJI OCASIO . DO YOU HAVE ANY OTHER QUESTIONS OR CONCERNS NO . VITAL SIGNS WT 144.2 LBS, HT 66 IN, BMI 23.27 INDEX, BP 126/69 MM HG, HR 73 /MIN, RR 18 /MIN, TEMP 98.2 F, OXYGEN SAT % 99%, SAFE IN ENV? (Y/N) YES, NA INITIALS AW 1019, REVIEWED BY: MCKAYLA. EXAMINATION GENERAL EXAMINATION: GENERALAWAKE,ALERT,WALKS WITH ANTALGIC GAIT AND ASSIST OF A CANE. PSYCHAFFECT NORMAL. LUNGS:LUNG PELAEZ ARE CLEAR TO AUSCULTATION BILATERALLY. GOOD MOVEMENT OF AIR. HEART:S1, S2 IN A REGULAR RATE AND RHYTHM. NO SIGNIFICANT MURMURS, RUBS OR GALLOPS NOTED. DIAGNOSTIC:MRI L/S [id number]-REVIEWED. ASSESSMENTS OTHER CHRONIC PAIN - G89.29 (PRIMARY) TREATMENT OTHER CHRONIC PAIN REFILL CYMBALTA CAPSULE DELAYED RELEASE PARTICLES, 20 MG, 1 CAPSULE, ORALLY, DAILY, 30 DAY(S), 30 CAPSULE, REFILLS 5 PROCEDURE CODES FA211 ESTABILISHED PATIENT [facility] CHARGE DISPOSITION & COMMUNICATION FOLLOW UP 6 MONTHS (REASON: MED MGMNT) ELECTRONICALLY SIGNED BY MICHAEL KHAN ON 06/09/2019 AT 11:29 AM EST DISCLAIMER : THIS IS A VISIT SUMMARY EXTRACTED FROM THE [employer] CHART. IT IS NOT A COPY OF THE [employer] PROGRESS NOTE. MTDD
== END ==
LOC: M PAIN 10:00
PROVIDERS: ATTEND Nurse Practitioner Family
DX: G89.29 Other chronic pain (principal); G35 Multiple sclerosis; F17.210 Nicotine dependence, cigarettes, uncomplicated; Z79.899 Other long term (current) drug therapy

== ENCOUNTER 2019-09-30 14:22 | Outpatient (CLI) | payer MEDICARE ==
[~2019-09-30] VITALS: Ht 167.6 cm; Wt 67.3 kg
[2019-09-30 14:30] VITALS: BP 108/68
[2019-09-30] MEDS ORDERED: methylPREDNISolone 1,000 MG, VIAL MATE ADAPTER 1 EACH in D5W 250 ML IV ONE (14:45)
[2019-09-30 15:45] VITALS: BP 105/59
== END 2019-09-30 15:45 | disposition home or self-care (01) ==
LOC: M INFU 14:22
PROVIDERS: ATTEND Psychiatry & Neurology Neurology
DX: G35 Multiple sclerosis (principal)
CPT/HCPCS: 96365; J2930

== ENCOUNTER 2019-10-01 15:27 | Outpatient (CLI) | payer MEDICARE ==
[~2019-10-01] VITALS: Ht 167.6 cm; Wt 63.6 kg
[~2019-10-01 15:27] MED LIST changes: +methylPREDNISolone 1,000 MG, VIAL MATE ADAPTER 1 EACH in D5W 250 ML IV ONE
[2019-10-01 15:54] VITALS: BP 101/59
[2019-10-01 16:17] VITALS: BP 130/84
[2019-10-01 16:50] VITALS: BP 92/56
== END 2019-10-01 16:50 | disposition home or self-care (01) ==
LOC: M INFU 15:27
PROVIDERS: ATTEND Psychiatry & Neurology Neurology
DX: G35 Multiple sclerosis (principal)
CPT/HCPCS: 96365; J2930

== ENCOUNTER 2019-10-02 09:58 | Outpatient (CLI) | payer MEDICARE ==
[~2019-10-02] VITALS: Ht 167.6 cm; Wt 63.6 kg
[~2019-10-02 09:58] MED LIST changes: -methylPREDNISolone 1,000 MG, VIAL MATE ADAPTER 1 EACH in D5W 250 ML IV ONE
[2019-10-02 10:00] VITALS: BP 132/88
[2019-10-02] MEDS ORDERED: methylPREDNISolone 1,000 MG, VIAL MATE ADAPTER 1 EACH in D5W 250 ML IV ONE (11:00)
== END 2019-10-02 12:17 | disposition home or self-care (01) ==
LOC: M OPCLI4PV 09:58 → M MSPAV 10:00 → M OPCLI4PV 12:17
PROVIDERS: ATTEND Psychiatry & Neurology Neurology
DX: G35 Multiple sclerosis (principal)
CPT/HCPCS: 96365; J2930

== ENCOUNTER 2019-10-03 09:25 | Outpatient (CLI) | payer MEDICARE ==
[~2019-10-03] VITALS: Ht 167.6 cm; Wt 67.3 kg
[2019-10-03] MEDS ORDERED: methylPREDNISolone 1,000 MG, VIAL MATE ADAPTER 1 EACH in D5W 250 ML IV ONE (10:00)
[2019-10-03 10:05] VITALS: BP 118/68
== END 2019-10-03 12:04 | disposition home or self-care (01) ==
LOC: M OPCLI4PV 09:25 → M INFU 09:25 → M MSPAV 09:27 → M OPCLI4PV 12:04
PROVIDERS: ATTEND Psychiatry & Neurology Neurology
DX: G35 Multiple sclerosis (principal)
CPT/HCPCS: 96374; J2930

== ENCOUNTER 2019-10-04 15:46 | Outpatient (CLI) | payer MEDICARE ==
[~2019-10-04] VITALS: Ht 167.6 cm; Wt 67.3 kg
[2019-10-04 15:50] VITALS: BP 105/65
[2019-10-04] MEDS ORDERED: methylPREDNISolone 1,000 MG, VIAL MATE ADAPTER 1 EACH in D5W 250 ML IV ONE (16:30)
[2019-10-04 17:35] VITALS: BP 101/67
== END 2019-10-04 17:35 | disposition home or self-care (01) ==
LOC: M INFU 15:46
PROVIDERS: ATTEND Psychiatry & Neurology Neurology
DX: G35 Multiple sclerosis (principal)
CPT/HCPCS: 96365; J2930

== ENCOUNTER → 2020-04-04 | Outpatient (CLI) | payer MEDICARE ==
--- NOTE | 2020-04-06 00:10 | ECWPNPC ---
PATIENT NAME: STEVE OCASIO : 1985 GENDER: MALE VISIT DATE: 04/04/2020 DISCHARGE DATE: 04/04/20 1131 VISIT LOCKED DATE TIME: PHYSICIAN: MESFIN WRIGHT RESOURCE: MESFIN WRIGHT REASON FOR APPOINTMENT 1. LOW BACK HISTORY OF PRESENT ILLNESS GENERAL: -. FALL RISK SCREENING: SCREENING :NO FALLS REPORTED IN THE LAST YEAR PAIN SCREENING: PATIENT HAS A COMPLAINT OF ACUTE OR CHRONIC PAIN :YES LOCATION OF PAIN:LOW BACK, LEG(S) INTENSITY OF PAIN (SCALE OF 1 TO 10):6 WHAT DOES YOUR PAIN FEEL LIKE:THROBBING DURATION:INTERMITTENT PAIN IS INCREASED BY:OTHERS WEATHER CHANGES PAIN IS DECREASED BY:OTHERS STRETCHING, BACLOFEN, CYMBALTA TREATMENT/MEDICATIONS USED TO MANAGE PAIN:NONE LEVEL OF RELIEF FROM PAIN TREATMENTS IN THE PAST:25% PAIN HAS INTERFERED WITH THE FOLLOWING:SLEEP NURSING NOTE: -. PAIN CENTER INTAKE QUESTIONS: DO YOU HAVE A HISTORY OF MRSA? :NO DO YOU TAKE A BLOOD THINNERS? :NO DO YOU HAVE ANY BLEEDING DISORDERS? :NO ANY NEW NUMBNESS OR WEAKNESS IN YOUR LEGS OR ARMS? :NO ANY PACEMAKER,DEFIBRILLATOR, OR DORSAL COLUMN STIMULATOR? :NO DO YOU HAVE ANY RASHES OR OPEN SORES? :NO ARE YOU ALLERGIC TO IV DYE? :NO ARE YOU DIABETIC? :NO ANY NEW PROBLEMS WITH YOUR MEDICATIONS? :NO HAVE YOU RECEIVED A VACCINE IN THE PAST 30 DAYS? :NO DO YOU PLAN TO RECEIVE A VACCINE IN THE NEXT 21 DAYS? :NO DO YOU NEED ANY PRESCRIPTION? :NO DO YOU TAKE ANY IMMUNOSUPPRESSIVE MEDICATIONS? :NO IS THERE A CHANCE YOU COULD BE ? :NO ARE YOU BREAST FEEDING? :NO HISTORY OF PRESENT ILLNESS: HERE FOR F/U OF CHRONIC LBP WITH HISTORY OF MS.USING CYMBALTA 30MG DAILY AND STATES THIS IS HELPING WITH IMPROVED SLEEP.USING MEDICAL MARIJUANA WITH DR. MARTIN AND FINDING THIS HELPFUL.RATING PAIN VAS 6/10. PAIN THE PATIENT DESCRIBES THE PAIN... CURRENT MEDICATIONS TAKING COPAXONE 40 MG/ML SOLUTION PREFILLED SYRINGE 1 ML SUBCUTANEOUS THREE TIMES A WEEK TAKING GABAPENTIN 400 MG CAPSULE 1 CAPSULE ORALLY THREE TIMES A DAY TAKING BACLOFEN 10 MG TABLET 1 TABLET WITH FOOD OR MILK ORALLY THREE TIMES A DAY TAKING METHOCARBAMOL 500 MG TABLET 1-2 TABLET ORALLY BID NEEDED TAKING PRIMIDONE 50 MG TABLET ORALLY BID TAKING CYMBALTA 20 MG CAPSULE DELAYED RELEASE PARTICLES 1 CAPSULE ORALLY DAILY TAKING RITALIN 10 MG TABLET 1 TABLET ON EMPTY STOMACH ORALLY TWICE A DAY NOT-TAKING SOLU-MEDROL 500 MG SOLUTION RECONSTITUTED INJECTION , NOTES: TWICE A YEAR IN INFUSIONS MEDICATION LIST REVIEWED AND RECONCILED WITH THE PATIENT PAST MEDICAL HISTORY MULTIPLE SCLEROSIS BILATERAL LOWER EXTREMITY WEAKNESS LEFT HAND NUMBNESS ALLERGIES N.K.D.A. SURGICAL HISTORY NONE FAMILY HISTORY FATHER: 63 YRS, HAS COPD MOTHER: 61 YRS, HAS MS SOCIAL HISTORY GENERAL: TOBACCO USE ARE YOU A:CURRENT SMOKER ARE YOU INTERESTED IN QUITTING?NOT READY TO QUIT COUNSELED THE PATIENT ON SMOKING EFFECTS, EDUCATION [id number]/01/2020 HOW MANY CIGARETTES A DAY DO YOU SMOKE?6-10 HOW OFTEN DO YOU SMOKE CIGARETTES?EVERY DAY PATIENT COUNSELED ON THE DANGERS OF TOBACCO USE AND URGED TO QUIT:06/09/2019 LATEX QUESTIONNAIRE LATEX ALLERGY : HAVE YOU EVER DEVELOPED ANY TYPE OF REACTION AFTER HANDLING LATEX PRODUCTS SUCH RUBBER GLOVES, CONDOMS, DIAPHRAGMS, BALLOONS, SOCKS, OR UNDERWEAR?NO LATEX ALLERGY : HAVE YOU EVER DEVELOPED ANY TYPE OF REACTION DURING OR AFTER DENTAL APPOINTMENT, VAGINAL/RECTAL EXAMINATION, SURGICAL PROCEDURE, OR ANY OTHER EXPOSURE?NO DATE ASKED : 06/09/2019 LATEX RISK : HAVE YOU EVER HAD ANY DIFFICULTY BREATHING OR HIVES AFTER EATING OR HANDLING ANY FRUITS, OR VEGETABLES; SUCH KIWI, BANANAS, STONE FRUITS, OR CHESTNUTSNO LATEX RISK : DO YOU HAVE A PREVIOUS PERSONAL HISTORY OF MORE THAN NINE SURGERIES, SPINA BIFIDA, OR REPEATED CATHERIZATIONS? NO LATEX RISK : ARE YOU FREQUENTLY EXPOSED TO LATEX PRODUCTS IN YOUR OCCUPATION?NO ALCOHOL SCREENING DID YOU HAVE A DRINK CONTAINING ALCOHOL IN THE PAST YEAR?YES HOW OFTEN DID YOU HAVE A DRINK CONTAINING ALCOHOL IN THE PAST YEAR?TWO TO FOUR TIMES A MONTH (2 POINTS) POINTS2 INTERPRETATIONNEGATIVE RECREATIONAL DRUG USE DRUG USE?YES MARIJUANA CAFFEINE CAFFEINE USE?YES HOW OFTEN AND HOW MUCH? COFFEE EVERY DAY GNOSTICISM [id number] SHINTO NO SCIENTOLOGY BELIEFS THAT WOULD IMPACT HEALTH CARE. LANGUAGE LANGUAGES SPOKEN:KINYARWANDA LEARNING BARRIERS / SPECIAL NEEDS BARRIERS TO LEARNING?NO HEARING IMPAIRED?NO VISION IMPAIRED?NO COGNITIVELY IMPAIRED?NO READINESS TO LEARN?YES PAIN CLINIC PFS, CLERGY, PUBLIC HEALTH REFERRALS PFS REFERRAL NEEDED?NO CLERGY REFERRAL NEEDED?NO PUBLIC HEALTH REFERRAL NEEDED?NO WAS THE PROVIDER NOTIFIED OF ANY PERTINENT INFO?NO HAS THE PATIENT BEEN EDUCATED REGARDING HIS/HER PLAN OF CARE?YES HAS THE PATIENT BEEN EDUCATED REGARDING PAIN, THE RISK FOR PAIN, THE IMPORTANCE OF EFFECTIVE PAIN MANAGEMENT, AND THE PAIN ASSESSMENT PROCESS?YES ADVANCE DIRECTIVE ADVANCE DIRECTIVE DISCUSSED WITH PATIENT:YES PT HAS NO ADVANCED DIRECTIVES, DECLINES INFORMATION OR ASSISTANCE AT THIS TIME. JS REVIEWED WITH PT 02/23/18 1036 BVREVIEWED WITH PT 12/07/18 1038 LASREVIEWED WITH PATIENT 06/09/2019 1024 JS. HOSPITALIZATION/MAJOR DIAGNOSTIC PROCEDURE OVERNIGHT IN THE ER 2014 REVIEW OF SYSTEMS CONSTITUTIONAL: ANY RECENT FEVER NO . CHILLS NO . WEIGHT CHANGE OF UNKNOWN REASONS NO . GASTROENTEROLOGY: NEW UNEXPLAINABLE CHANGES IN BOWEL CONTROL NO . CONSTIPATION NO . GENITOURINARY: ANY NEW CHANGE IN BLADDER CONTROL? NO . NEUROLOGY: NEW ONSET DIZZINESS OR NEUROLOGICAL CHANGES NOT MENTIONED NO . NEW NUMBNESS OR PAIN PATTERNS NOT MENTIONED AND PERTINENT TO TODAY'S VISIT NO . CARDIOLOGY: NEW CHEST PRESSURE NO . NEW CHEST PAIN NO . RESPIRATORY: UNEXPLAINABLE COUGH NO . NEW SHORTNESS OF BREATH NO . VITAL SIGNS WT 142.0 LBS, HT 66 IN, BMI 22.92 INDEX, BP 121/74 MM HG, HR 94 /MIN, RR 18 /MIN, TEMP 98.8 F, OXYGEN SAT % 99%, SAFE IN ENV? (Y/N) Y, NA INITIALS AW 1100, REVIEWED BY: EM. EXAMINATION GENERAL EXAMINATION: GENERALAWAKE,ALERT ,PLEASANT . PSYCHAFFECT NORMAL . LUNGS:LUNG PELAEZ ARE CLEAR TO AUSCULTATION BILATERALLY. GOOD MOVEMENT OF AIR . HEART:S1, S2 IN A REGULAR RATE AND RHYTHM. NO SIGNIFICANT MURMURS, RUBS OR GALLOPS NOTED . ASSESSMENTS OTHER CHRONIC PAIN - G89.29 MULTIPLE SCLEROSIS - G35 TREATMENT OTHER CHRONIC PAIN CONTINUE CYMBALTA CAPSULE DELAYED RELEASE PARTICLES, 20 MG, 1 CAPSULE, ORALLY, DAILY PROCEDURE CODES FA211 ESTABILISHED PATIENT [facility] CHARGE DISPOSITION & COMMUNICATION FOLLOW UP 6 MONTHS (REASON: MED MGMNT/LOW BACK PAIN/MS) ELECTRONICALLY SIGNED BY MICHAEL KHAN ON 04/05/2020 AT 01:27 PM EST DISCLAIMER : THIS IS A VISIT SUMMARY EXTRACTED FROM THE [employer] CHART. IT IS NOT A COPY OF THE [employer] PROGRESS NOTE. CORWIN
== END ==
LOC: M PAIN 11:00
PROVIDERS: ATTEND Nurse Practitioner Family
DX: G89.29 Other chronic pain (principal); G35 Multiple sclerosis; F17.210 Nicotine dependence, cigarettes, uncomplicated; Z79.899 Other long term (current) drug therapy

== ENCOUNTER → 2020-10-03 | Outpatient (CLI) | payer MEDICARE ==
[~2020-10-03] MED LIST changes: +GABA-283 PO; -GABA-845 PO; +METH-1164 PO; -METH1TAB40 PO
--- NOTE | 2020-10-04 06:05 | ECWPNPC ---
PATIENT NAME: STEVE OCASIO : 1985 GENDER: MALE VISIT DATE: 10/03/2020 DISCHARGE DATE: 10/03/20 1108 VISIT LOCKED DATE TIME: PHYSICIAN: MESFIN WRIGHT RESOURCE: MESFIN WRIGHT REASON FOR APPOINTMENT 1. MED MGMNT/LOW BACK PAIN/MS HISTORY OF PRESENT ILLNESS DEPRESSION SCREENING: PHQ-2 (2015 EDITION) LITTLE INTEREST OR PLEASURE IN DOING THINGS?NOT AT ALL FEELING DOWN, DEPRESSED, OR HOPELESS?NOT AT ALL TOTAL SCORE0 GENERAL: HERE FOR SIX-MONTH FOLLOW-UP/MEDICATION MANAGEMENT FOR CHRONIC LOW BACK PAIN AND LOWER EXTREMITY NEUROPATHY WITH HISTORY OF MULTIPLE SCLEROSIS. CONTINUES TO DO WELL WITH CYMBALTA 20 MG TABLET ONCE DAILY. DENIES ADVERSE SIDE EFFECTS. CONTINUES TO FOLLOW WITH DR. ZAMORA/NEUROLOGY FOR MS. -. FALL RISK SCREENING: SCREENING : NO FALLS REPORTED IN THE LAST YEAR. PAIN SCREENING: PATIENT HAS A COMPLAINT OF ACUTE OR CHRONIC PAIN :YES LOCATION OF PAIN:LOW BACK INTENSITY OF PAIN (SCALE OF 1 TO 10):7 WHAT DOES YOUR PAIN FEEL LIKE:THROBBING DURATION:INTERMITTENT PAIN IS INCREASED BY:ACTIVITIES, PROLONGED STANDING PAIN IS DECREASED BY:SITTING, OTHERS RESTING NURSING NOTE: -. PAIN CENTER INTAKE QUESTIONS: DO YOU HAVE A HISTORY OF MRSA? :NO DO YOU TAKE A BLOOD THINNERS? :NO DO YOU HAVE ANY BLEEDING DISORDERS? :NO ANY NEW NUMBNESS OR WEAKNESS IN YOUR LEGS OR ARMS? :NO ANY PACEMAKER,DEFIBRILLATOR, OR DORSAL COLUMN STIMULATOR? :NO DO YOU HAVE ANY RASHES OR OPEN SORES? :NO ARE YOU ALLERGIC TO IV DYE? :NO ARE YOU DIABETIC? :NO ANY NEW PROBLEMS WITH YOUR MEDICATIONS? :NO HAVE YOU RECEIVED A VACCINE IN THE PAST 30 DAYS? :NO DO YOU PLAN TO RECEIVE A VACCINE IN THE NEXT 21 DAYS? :NO DO YOU NEED ANY PRESCRIPTION? :NO DO YOU TAKE ANY IMMUNOSUPPRESSIVE MEDICATIONS? :NO IS THERE A CHANCE YOU COULD BE ? :NO ARE YOU BREAST FEEDING? :NO CURRENT MEDICATIONS TAKING COPAXONE 40 MG/ML SOLUTION PREFILLED SYRINGE 1 ML SUBCUTANEOUS THREE TIMES A WEEK TAKING GABAPENTIN 400 MG CAPSULE 1 CAPSULE ORALLY THREE TIMES A DAY TAKING BACLOFEN 10 MG TABLET 1 TABLET WITH FOOD OR MILK ORALLY THREE TIMES A DAY TAKING METHOCARBAMOL 500 MG TABLET 1-2 TABLET ORALLY BID NEEDED TAKING PRIMIDONE 50 MG TABLET ORALLY BID TAKING RITALIN 10 MG TABLET 1 TABLET ON EMPTY STOMACH ORALLY TWICE A DAY TAKING CYMBALTA 20 MG CAPSULE DELAYED RELEASE PARTICLES 1 CAPSULE ORALLY DAILY NOT-TAKING SOLU-MEDROL 500 MG SOLUTION RECONSTITUTED INJECTION , NOTES: TWICE A YEAR IN INFUSIONS MEDICATION LIST REVIEWED AND RECONCILED WITH THE PATIENT PAST MEDICAL HISTORY MULTIPLE SCLEROSIS BILATERAL LOWER EXTREMITY WEAKNESS LEFT HAND NUMBNESS ALLERGIES N.K.D.A. SOCIAL HISTORY GENERAL: TOBACCO USE ARE YOU A:CURRENT SMOKER ARE YOU INTERESTED IN QUITTING?NOT READY TO QUIT COUNSELED THE PATIENT ON SMOKING EFFECTS, EDUCATION [id number]/01/2021 HOW MANY CIGARETTES A DAY DO YOU SMOKE?6-10 HOW SOON AFTER YOU WAKE UP DO YOU SMOKE YOUR FIRST CIGARETTE?31-60 MIN HOW OFTEN DO YOU SMOKE CIGARETTES?EVERY DAY PATIENT COUNSELED ON THE DANGERS OF TOBACCO USE AND URGED TO QUIT:06/09/2019 LATEX QUESTIONNAIRE LATEX ALLERGY : HAVE YOU EVER DEVELOPED ANY TYPE OF REACTION AFTER HANDLING LATEX PRODUCTS SUCH RUBBER GLOVES, CONDOMS, DIAPHRAGMS, BALLOONS, SOCKS, OR UNDERWEAR?NO LATEX ALLERGY : HAVE YOU EVER DEVELOPED ANY TYPE OF REACTION DURING OR AFTER DENTAL APPOINTMENT, VAGINAL/RECTAL EXAMINATION, SURGICAL PROCEDURE, OR ANY OTHER EXPOSURE?NO LATEX RISK : HAVE YOU EVER HAD ANY DIFFICULTY BREATHING OR HIVES AFTER EATING OR HANDLING ANY FRUITS, OR VEGETABLES; SUCH KIWI, BANANAS, STONE FRUITS, OR CHESTNUTSNO LATEX RISK : DO YOU HAVE A PREVIOUS PERSONAL HISTORY OF MORE THAN NINE SURGERIES, SPINA BIFIDA, OR REPEATED CATHERIZATIONS? NO LATEX RISK : ARE YOU FREQUENTLY EXPOSED TO LATEX PRODUCTS IN YOUR OCCUPATION?NO DATE ASKED : 10/03/2020 ALCOHOL USE: YES, ONE OR TWO BEERS A DAY. ALCOHOL SCREENING DID YOU HAVE A DRINK CONTAINING ALCOHOL IN THE PAST YEAR?YES HOW OFTEN DID YOU HAVE A DRINK CONTAINING ALCOHOL IN THE PAST YEAR?TWO TO FOUR TIMES A MONTH (2 POINTS) POINTS2 INTERPRETATIONNEGATIVE RECREATIONAL DRUG USE DRUG USE?YES MARIJUANA CAFFEINE CAFFEINE USE?YES HOW OFTEN AND HOW MUCH? COFFEE EVERY DAY RASTAFARI [id number] YARSANISM NO CONFUCIANIST BELIEFS THAT WOULD IMPACT HEALTH CARE. LANGUAGE LANGUAGES SPOKEN:MACANESE LEARNING BARRIERS / SPECIAL NEEDS BARRIERS TO LEARNING?NO HEARING IMPAIRED?NO VISION IMPAIRED?NO COGNITIVELY IMPAIRED?NO READINESS TO LEARN?YES LEARNING PREFERENCES?NO LEARNING CAPABILITIES PRESENT?YES EMOTIONAL BARRIERS?NO SPECIAL DEVICES?YES :CANE, WALKER VETERINARY ASSISTANT NEEDED?NO - PFS REFERRAL NEEDED?NO CLERGY REFERRAL NEEDED?NO PUBLIC HEALTH REFERRAL NEEDED?NO WAS THE PROVIDER NOTIFIED OF ANY PERTINENT INFO?NO HAS THE PATIENT BEEN EDUCATED REGARDING HIS/HER PLAN OF CARE?YES HAS THE PATIENT BEEN EDUCATED REGARDING PAIN, THE RISK FOR PAIN, THE IMPORTANCE OF EFFECTIVE PAIN MANAGEMENT, AND THE PAIN ASSESSMENT PROCESS?YES ADVANCE DIRECTIVE ADVANCE DIRECTIVE DISCUSSED WITH PATIENT:YES PT HAS NO ADVANCED DIRECTIVES, DECLINES INFORMATION OR ASSISTANCE AT THIS TIME. JS REVIEWED WITH PT 02/23/18 1036 BVREVIEWED WITH PT 12/07/18 1038 LASREVIEWED WITH PATIENT 06/09/2019 1024 JS. REVIEW OF SYSTEMS CONSTITUTIONAL: ANY RECENT FEVER NO . CHILLS NO . WEIGHT CHANGE OF UNKNOWN REASONS NO . GASTROENTEROLOGY: NEW UNEXPLAINABLE CHANGES IN BOWEL CONTROL NO . CONSTIPATION NO . GENITOURINARY: ANY NEW CHANGE IN BLADDER CONTROL? NO . NEUROLOGY: NEW ONSET DIZZINESS OR NEUROLOGICAL CHANGES NOT MENTIONED NO . NEW NUMBNESS OR PAIN PATTERNS NOT MENTIONED AND PERTINENT TO TODAY'S VISIT NO . CARDIOLOGY: NEW CHEST PRESSURE NO . PATIENT DENIES NO . RESPIRATORY: UNEXPLAINABLE COUGH NO . NEW SHORTNESS OF BREATH NO . VITAL SIGNS WT 136.6 LBS, HT 66 IN, BMI 22.05 INDEX, BP 121/78 MM HG, HR 98 /MIN, RR 18 /MIN, TEMP 99.5 F, OXYGEN SAT % 98%, SAFE IN ENV? (Y/N) YES, NA INITIALS SC 10:45T.SARA GONCALVES. EXAMINATION GENERAL EXAMINATION: GENERALAWAKE,ALERT ,PLEASANT . PSYCHAFFECT NORMAL . LUNGS:LUNG PELAEZ ARE CLEAR TO AUSCULTATION BILATERALLY. GOOD MOVEMENT OF AIR . HEART:S1, S2 IN A REGULAR RATE AND RHYTHM. NO SIGNIFICANT MURMURS, RUBS OR GALLOPS NOTED . 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 IT IS NOT A COPY OF THE [employer] PROGRESS NOTE. MTDD
== END ==
LOC: M PAIN 10:30
PROVIDERS: ATTEND Nurse Practitioner Family
DX: G57.93 Unspecified mononeuropathy of bilateral lower limbs (principal); G35 Multiple sclerosis; F17.210 Nicotine dependence, cigarettes, uncomplicated; Z79.899 Other long term (current) drug therapy

== ENCOUNTER 2021-01-03 15:17 | Outpatient (CLI) | payer MEDICARE, MEDICAID ==
[~2021-01-03] VITALS: Ht 167.6 cm; Wt 67.3 kg
[~2021-01-03 15:17] MED LIST changes: +methylPREDNISolone 1,000 MG, VIAL MATE ADAPTER 1 EACH in NS 250 ML IV ONE
[2021-01-03 15:31] VITALS: BP 95/50
[2021-01-03 16:40] VITALS: BP 94/52
== END 2021-01-03 16:40 | disposition home or self-care (01) ==
LOC: M INFU 15:17
PROVIDERS: ATTEND Psychiatry & Neurology Neurology
DX: G35 Multiple sclerosis (principal)
CPT/HCPCS: 96365; J2930

== ENCOUNTER 2021-01-04 14:54 | Outpatient (CLI) | payer MEDICARE ==
[~2021-01-04] VITALS: Ht 167.6 cm; Wt 67.3 kg
[~2021-01-04 14:54] MED LIST changes: -methylPREDNISolone 1,000 MG, VIAL MATE ADAPTER 1 EACH in NS 250 ML IV ONE
[2021-01-04] MEDS ORDERED: methylPREDNISolone 1,000 MG, VIAL MATE ADAPTER 1 EACH in NS 250 ML IV ONE (15:00)
[2021-01-04 15:10] VITALS: BP 111/59
[2021-01-04 16:30] VITALS: BP 111/59
== END 2021-01-04 16:30 | disposition home or self-care (01) ==
LOC: M INFU 14:54
PROVIDERS: ATTEND Psychiatry & Neurology Neurology
DX: G35 Multiple sclerosis (principal)
CPT/HCPCS: 96365; J2930

== ENCOUNTER 2021-01-05 14:55 | Outpatient (CLI) | payer MEDICARE ==
[~2021-01-05] VITALS: Ht 167.6 cm; Wt 67.3 kg
[2021-01-05] MEDS ORDERED: methylPREDNISolone 1,000 MG, VIAL MATE ADAPTER 1 EACH in NS 250 ML IV ONE (15:00)
[2021-01-05 15:22] VITALS: BP 128/65
[2021-01-05 16:18] VITALS: BP 134/73
== END 2021-01-05 16:15 | disposition home or self-care (01) ==
LOC: M INFU 14:55
PROVIDERS: ATTEND Psychiatry & Neurology Neurology
DX: G35 Multiple sclerosis (principal)
CPT/HCPCS: 96365; J2930

== ENCOUNTER 2021-01-06 13:59 | Outpatient (CLI) | payer MEDICARE ==
[~2021-01-06] VITALS: Ht 167.6 cm; Wt 61.4 kg
[2021-01-06 14:25] VITALS: BP 105/69
[2021-01-06] MEDS ORDERED: methylPREDNISolone 1,000 MG, VIAL MATE ADAPTER 1 EACH in NS 250 ML IV ONE (15:00)
[2021-01-06 16:15] VITALS: BP 122/85
== END 2021-01-06 16:15 | disposition home or self-care (01) ==
LOC: M INFU 13:59 → M MS5PR 14:04 → M INFU 16:15
PROVIDERS: ATTEND Psychiatry & Neurology Neurology
DX: G35 Multiple sclerosis (principal)
CPT/HCPCS: 96365; J2930

== ENCOUNTER 2021-01-07 13:46 | Outpatient (CLI) | payer MEDICARE ==
[~2021-01-07] VITALS: Ht 167.6 cm; Wt 61.4 kg
[2021-01-07 14:00] VITALS: BP 94/64
[2021-01-07] MEDS ORDERED: methylPREDNISolone 1,000 MG, VIAL MATE ADAPTER 1 EACH in NS 250 ML IV ONE (15:00)
== END 2021-01-07 15:50 | disposition home or self-care (01) ==
LOC: M INFU 13:46 → M MS5PR 13:56 → M INFU 15:50
PROVIDERS: ATTEND Psychiatry & Neurology Neurology
DX: G35 Multiple sclerosis (principal)
CPT/HCPCS: 96365; J2930

== ENCOUNTER → 2021-07-24 | Outpatient (CLI) | payer MEDICARE | LOC: M RAD 13:09 | PROVIDERS: ATTEND Nurse Practitioner Family | DX: M51.16 Intervertebral disc disorders with radiculopathy, lumbar region (principal) ==

== ENCOUNTER → 2022-02-07 | Outpatient (CLI) | payer MEDICARE | LOC: M PAIN 10:15 | PROVIDERS: ATTEND Nurse Practitioner Family | DX: M51.16 Intervertebral disc disorders with radiculopathy, lumbar region (principal); G89.29 Other chronic pain; G35 Multiple sclerosis; F17.210 Nicotine dependence, cigarettes, uncomplicated; Z79.899 Other long term (current) drug therapy ==

== ENCOUNTER 2022-03-11 16:58 | Outpatient (CLI) | payer MEDICARE ==
[~2022-03-11] VITALS: Ht 167.6 cm; Wt 63.6 kg
[2022-03-11 17:00] VITALS: BP 125/81
[2022-03-11] MEDS ORDERED: methylPREDNISolone 1,000 MG, VIAL MATE ADAPTER 1 EACH in NS 250 ML IV ONE (17:00)
[2022-03-11 18:30] VITALS: BP 115/78
== END 2022-03-11 18:30 | disposition home or self-care (01) ==
LOC: M INFU 16:58
PROVIDERS: ATTEND Psychiatry & Neurology Neurology
DX: G35 Multiple sclerosis (principal)
CPT/HCPCS: 96365; J2930

== ENCOUNTER 2022-03-12 16:15 | Outpatient (CLI) | payer MEDICARE ==
[~2022-03-12] VITALS: Ht 167.6 cm; Wt 63.6 kg
[2022-03-12 16:29] VITALS: BP 119/64
[2022-03-12] MEDS ORDERED: methylPREDNISolone 1,000 MG, VIAL MATE ADAPTER 1 EACH in NS 250 ML IV ONE (17:00)
[2022-03-12 17:20] VITALS: BP 124/64
== END 2022-03-12 17:25 | disposition home or self-care (01) ==
LOC: M INFU 16:15
PROVIDERS: ATTEND Psychiatry & Neurology Neurology
DX: G35 Multiple sclerosis (principal)
CPT/HCPCS: 96365; J2930

== ENCOUNTER → 2022-03-13 | Outpatient (CLI) | payer MEDICARE ==
[~2022-03-13] VITALS: Ht 167.6 cm; Wt 63.6 kg
[~2022-03-13] MED LIST changes: +methylPREDNISolone 1,000 MG, VIAL MATE ADAPTER 1 EACH in NS 250 ML IV ONE
[2022-03-13 17:00] VITALS: BP 142/82
[2022-03-13 17:10] VITALS: BP 112/76
== END ==
LOC: M INFU 16:50
PROVIDERS: ATTEND Psychiatry & Neurology Neurology
DX: G35 Multiple sclerosis (principal)
CPT/HCPCS: 96374; J2930

== ENCOUNTER 2022-03-14 16:30 | Outpatient (CLI) | payer MEDICARE ==
[~2022-03-14] VITALS: Ht 165.1 cm; Wt 63.6 kg
[2022-03-14 17:38] VITALS: BP 115/75
== END 2022-03-14 17:45 | disposition home or self-care (01) ==
LOC: M INFU 16:30
PROVIDERS: ATTEND Psychiatry & Neurology Neurology
DX: G35 Multiple sclerosis (principal)
CPT/HCPCS: 96365; J2930

== ENCOUNTER 2022-03-15 16:20 | Outpatient (CLI) | payer MEDICARE ==
[~2022-03-15] VITALS: Ht 167.6 cm; Wt 63.6 kg
[~2022-03-15 16:20] MED LIST changes: -methylPREDNISolone 1,000 MG, VIAL MATE ADAPTER 1 EACH in NS 250 ML IV ONE
[2022-03-15 16:31] VITALS: BP 102/66
[2022-03-15] MEDS ORDERED: methylPREDNISolone 1,000 MG, VIAL MATE ADAPTER 1 EACH in NS 250 ML IV ONE (17:00)
[2022-03-15 17:35] VITALS: BP 101/70
== END 2022-03-15 17:35 | disposition home or self-care (01) ==
LOC: M INFU 16:20
PROVIDERS: ATTEND Psychiatry & Neurology Neurology
DX: G35 Multiple sclerosis (principal)
CPT/HCPCS: 96365; J2930

== ENCOUNTER 2022-05-24 14:30 | Outpatient (CLI) | payer MEDICARE ==
[2022-05-24 14:30] VITALS: BP 107/69
[2022-05-24] MEDS ORDERED: methylPREDNISolone 1,000 MG, VIAL MATE ADAPTER 1 EACH in NS 250 ML IV ONE (15:00)
[2022-05-24 15:45] VITALS: BP 105/67
== END 2022-05-24 15:45 | disposition home or self-care (01) ==
LOC: M INFU 14:30
PROVIDERS: ATTEND Psychiatry & Neurology Neurology
DX: G35 Multiple sclerosis (principal)

== ENCOUNTER 2022-05-25 16:11 | Outpatient (CLI) | payer MEDICARE ==
[~2022-05-25] VITALS: Ht 167.6 cm; Wt 60.9 kg
[2022-05-25 16:47] VITALS: BP 117/80
[2022-05-25] MEDS ORDERED: methylPREDNISolone 1,000 MG, VIAL MATE ADAPTER 1 EACH in NS 250 ML IV ONE (17:30)
[2022-05-25 18:19] VITALS: BP 117/80
== END 2022-05-25 18:20 | disposition home or self-care (01) ==
LOC: M OPCLI4PV 16:11 → M MSPAV 16:13 → M OPCLI4PV 18:20
PROVIDERS: ATTEND Psychiatry & Neurology Neurology
DX: G35 Multiple sclerosis (principal)

== ENCOUNTER 2022-05-26 15:51 | Outpatient (CLI) | payer MEDICARE ==
[~2022-05-26] VITALS: Ht 167.6 cm; Wt 61.2 kg
[2022-05-26 16:17] VITALS: BP 106/71
[2022-05-26] MEDS ORDERED: methylPREDNISolone 1,000 MG, VIAL MATE ADAPTER 1 EACH in NS 250 ML IV ONE (16:45)
[2022-05-26 18:02] VITALS: BP 110/74
== END 2022-05-26 18:41 | disposition home or self-care (01) ==
LOC: M OPCLI4PV 15:51 → M MSPAV 16:38 → M OPCLI4PV 18:41
PROVIDERS: ATTEND Psychiatry & Neurology Neurology
DX: G35 Multiple sclerosis (principal)
CPT/HCPCS: 96374; J2930

== ENCOUNTER 2022-05-27 15:00 | Outpatient (CLI) | payer MEDICARE ==
[~2022-05-27] VITALS: Ht 167.6 cm; Wt 60.9 kg
[2022-05-27 15:00] VITALS: BP 115/76
[~2022-05-27 15:00] MED LIST changes: +methylPREDNISolone 1,000 MG, VIAL MATE ADAPTER 1 EACH in NS 250 ML IV ONE
[2022-05-27 15:35] VITALS: BP 110/73
[2022-05-27 16:35] VITALS: BP 110/73
== END 2022-05-27 16:35 | disposition home or self-care (01) ==
LOC: M INFU 15:00
PROVIDERS: ATTEND Psychiatry & Neurology Neurology
DX: G35 Multiple sclerosis (principal)
CPT/HCPCS: 96365; J2930

== ENCOUNTER 2022-05-28 16:15 | Outpatient (CLI) | payer MEDICARE, OTHER ==
[~2022-05-28] VITALS: Ht 167.6 cm; Wt 61.0 kg
[2022-05-28 16:10] VITALS: BP 127/80
[~2022-05-28 16:15] MED LIST changes: -methylPREDNISolone 1,000 MG, VIAL MATE ADAPTER 1 EACH in NS 250 ML IV ONE
[2022-05-28] MEDS ORDERED: methylPREDNISolone 1,000 MG, VIAL MATE ADAPTER 1 EACH in NS 250 ML IV ONE (16:30)
[2022-05-28 17:14] VITALS: BP 115/58
== END 2022-05-28 17:15 | disposition home or self-care (01) ==
LOC: M INFU 16:15
PROVIDERS: ATTEND Psychiatry & Neurology Neurology
DX: G35 Multiple sclerosis (principal)
CPT/HCPCS: 96365; J2930

== ENCOUNTER 2022-06-18 08:50 | Outpatient (CLI) | payer MEDICARE ==
[~2022-06-18] VITALS: Ht 167.6 cm; Wt 61.0 kg
[2022-06-18 08:50] VITALS: BP 108/70
[2022-06-18] MEDS ORDERED: methylPREDNISolone 125MG 2ML VIAL IV ONE (09:00)
[2022-06-18] MEDS ORDERED: diphenhydrAMINE 25MG CAP PO ONE (09:00)
[2022-06-18] MEDS ORDERED: ACETAMINOPHEN TAB 650MG DOSE (2X325MG) PO ONE (09:00)
[2022-06-18] MEDS ORDERED: OCRELIZUMAB 300 MG in NS 250 ML IV ONE (09:00)
[2022-06-18 10:30] VITALS: BP 120/74
[2022-06-18 11:00] VITALS: BP 99/65
[2022-06-18 11:30] VITALS: BP 112/61
[2022-06-18 13:10] VITALS: BP 96/68
== END 2022-06-18 13:10 | disposition home or self-care (01) ==
LOC: M INFU 08:50
PROVIDERS: ATTEND Psychiatry & Neurology Neurology
DX: G35 Multiple sclerosis (principal)
CPT/HCPCS: 96365; 96366; 96375; J2350; J2930

== ENCOUNTER 2022-07-03 10:38 | Outpatient (CLI) | payer MEDICARE ==
[~2022-07-03] VITALS: Ht 167.6 cm; Wt 61.0 kg
[2022-07-03] VITALS (7 sets, daily range): BP systolic 100–116; BP diastolic 59–72
[~2022-07-03 10:38] MED LIST changes: +ACETAMINOPHEN TAB 650MG DOSE (2X325MG) PO ONE; +OCRELIZUMAB 300 MG in NS 250 ML IV ONE; +diphenhydrAMINE 25MG CAP PO ONE; +methylPREDNISolone 125MG 2ML VIAL IV ONE
== END 2022-07-03 14:30 | disposition home or self-care (01) ==
LOC: M INFU 10:38
PROVIDERS: ATTEND Psychiatry & Neurology Neurology
DX: G35 Multiple sclerosis (principal)
CPT/HCPCS: 96365; 96366; J2350; J2930

== ENCOUNTER → 2022-07-23 | Outpatient (CLI) | payer MEDICARE ==
[~2022-07-23] MED LIST changes: -ACETAMINOPHEN TAB 650MG DOSE (2X325MG) PO ONE; -OCRELIZUMAB 300 MG in NS 250 ML IV ONE; -diphenhydrAMINE 25MG CAP PO ONE; -methylPREDNISolone 125MG 2ML VIAL IV ONE
== END ==
LOC: M PAIN 10:15
PROVIDERS: ATTEND Nurse Practitioner Family
DX: M51.16 Intervertebral disc disorders with radiculopathy, lumbar region (principal); G35 Multiple sclerosis; F17.210 Nicotine dependence, cigarettes, uncomplicated; Z79.899 Other long term (current) drug therapy

== ENCOUNTER → 2022-11-28 | Outpatient (CLI) | payer MEDICARE, MEDICAID ==
[~2022-11-28] MED LIST changes: -GABA-283 PO; +GABA-284 PO
== END ==
LOC: M PAIN 11:00
PROVIDERS: ATTEND Nurse Practitioner Family
DX: M51.16 Intervertebral disc disorders with radiculopathy, lumbar region (principal); G89.29 Other chronic pain; G35 Multiple sclerosis; F17.210 Nicotine dependence, cigarettes, uncomplicated; Z79.899 Other long term (current) drug therapy

== ENCOUNTER 2023-01-17 08:40 | Outpatient (CLI) | payer MEDICARE, MEDICAID ==
[2023-01-17] VITALS (7 sets, daily range): BP systolic 108–125; BP diastolic 64–76; O2SAT 96–100
[~2023-01-17] VITALS: Ht 167.6 cm; Wt 66.4 kg
[~2023-01-17 08:40] MED LIST changes: +ACETAMINOPHEN TAB 650MG DOSE (2X325MG) PO ONE; +diphenhydrAMINE 25MG CAP PO ONE; +methylPREDNISolone 125MG 2ML VIAL IV ONE
[2023-01-17] MEDS ORDERED: OCRELIZUMAB 600 MG in NS 500 ML IV ONE (09:00)
== END 2023-01-17 13:20 | disposition home or self-care (01) ==
LOC: M INFU 08:40
PROVIDERS: ATTEND Psychiatry & Neurology Neurology
DX: G35 Multiple sclerosis (principal)
CPT/HCPCS: 96365; 96366; 96367; J2350; J2930

== ENCOUNTER → 2023-02-24 | Outpatient (CLI) | payer MEDICARE, MEDICAID ==
[~2023-02-24] MED LIST changes: -ACETAMINOPHEN TAB 650MG DOSE (2X325MG) PO ONE; -diphenhydrAMINE 25MG CAP PO ONE; -methylPREDNISolone 125MG 2ML VIAL IV ONE
== END ==
LOC: M PAIN 11:45
PROVIDERS: ATTEND Nurse Practitioner Family
DX: M51.16 Intervertebral disc disorders with radiculopathy, lumbar region (principal); G89.29 Other chronic pain; G35 Multiple sclerosis; F17.210 Nicotine dependence, cigarettes, uncomplicated; Z79.899 Other long term (current) drug therapy

== ENCOUNTER 2023-08-01 11:32 | Outpatient (CLI) | payer MEDICARE, MEDICAID ==
[~2023-08-01] VITALS: Ht 167.6 cm; Wt 63.6 kg
[2023-08-01 12:05] VITALS: BP 118/73; O2SAT 97
[2023-08-01] MEDS: ACETAMINOPHEN TAB 650MG DOSE (2X325MG) PO ONE (12:31)
[2023-08-01] MEDS: diphenhydrAMINE 25MG CAP PO ONE (12:31)
[2023-08-01] MEDS: methylPREDNISolone 125MG 2ML VIAL IV ONE (12:32)
[2023-08-01] MEDS: OCRELIZUMAB 600 MG in NS 500 ML IV ONE (12:35)
[2023-08-01 13:00] VITALS: BP 116/68; O2SAT 96
[2023-08-01 14:00] VITALS: BP 112/66; O2SAT 95
[2023-08-01 15:30] VITALS: BP 102/67; O2SAT 96
[2023-08-01 16:54] VITALS: BP 106/64; O2SAT 100
== END 2023-08-01 17:00 | disposition home or self-care (01) ==
LOC: M INFU 11:32
PROVIDERS: ATTEND Psychiatry & Neurology Neurology
DX: G35 Multiple sclerosis (principal)
CPT/HCPCS: 96365; 96366; 96375; J2350; J2930

== ENCOUNTER → 2023-09-04 | Outpatient (CLI) | payer MEDICARE, MEDICAID | LOC: M PAIN 11:30 | PROVIDERS: ATTEND Nurse Practitioner Family | DX: M51.16 Intervertebral disc disorders with radiculopathy, lumbar region (principal); G35 Multiple sclerosis; G89.29 Other chronic pain; Z79.899 Other long term (current) drug therapy; F17.210 Nicotine dependence, cigarettes, uncomplicated ==

== ENCOUNTER → 2023-12-08 | Outpatient (CLI) | payer MEDICARE, MEDICAID | LOC: M PAIN 11:15 | PROVIDERS: ATTEND Nurse Practitioner Family | DX: M51.16 Intervertebral disc disorders with radiculopathy, lumbar region (principal); G89.29 Other chronic pain; G35 Multiple sclerosis; F17.210 Nicotine dependence, cigarettes, uncomplicated; Z79.899 Other long term (current) drug therapy ==

== ENCOUNTER 2024-02-02 11:36 | Outpatient (CLI) | payer MEDICARE, MEDICAID ==
[~2024-02-02] VITALS: Ht 167.6 cm; Wt 64.0 kg
[2024-02-02 11:55] VITALS: BP 115/66; O2SAT 100
[2024-02-02] MEDS: methylPREDNISolone 125MG 2ML VIAL IV ONE (12:28)
[2024-02-02] MEDS: diphenhydrAMINE 25MG CAP PO ONE (12:28)
[2024-02-02] MEDS: ACETAMINOPHEN TAB 650MG DOSE (2X325MG) PO ONE (12:28)
[2024-02-02] MEDS: OCRELIZUMAB 600 MG in NS 500 ML IV ONE (12:47)
[2024-02-02 13:15] VITALS: BP 119/70; O2SAT 100
[2024-02-02 13:45] VITALS: BP 107/69; O2SAT 100
[2024-02-02 14:45] VITALS: BP 119/78; O2SAT 100
[2024-02-02 16:24] VITALS: BP 119/76; O2SAT 98
[2024-02-02 16:40] VITALS: BP 115/78; O2SAT 100
== END 2024-02-02 16:45 ==
LOC: M INFU 11:36
PROVIDERS: ATTEND Psychiatry & Neurology Neurology
DX: G35 Multiple sclerosis (principal)
CPT/HCPCS: 96365; 96366; 96367; J2350; J2919

== ENCOUNTER 2024-08-24 08:15 | Outpatient (CLI) | payer MEDICARE, MEDICAID ==
[~2024-08-24] VITALS: Ht 167.6 cm; Wt 63.6 kg
[2024-08-24 08:45] VITALS: BP 115/75; O2SAT 100
[2024-08-24] MEDS: diphenhydrAMINE 25MG CAP PO ONE (09:14)
[2024-08-24] MEDS: methylPREDNISolone 125MG 2ML VIAL IV ONE (09:14)
[2024-08-24] MEDS: ACETAMINOPHEN 325 MG TAB PO ONE (09:14)
[2024-08-24] MEDS: OCRELIZUMAB 600 MG in NS 500 ML IV ONE (09:42)
[2024-08-24 10:15] VITALS: BP 102/65; O2SAT 98
[2024-08-24 10:45] VITALS: BP 111/71; O2SAT 100
[2024-08-24 11:15] VITALS: BP 110/72; O2SAT 99
[2024-08-24 11:45] VITALS: BP 115/67; O2SAT 98
[2024-08-24 12:15] VITALS: BP 119/70; O2SAT 97
== END 2024-08-24 13:40 | disposition home or self-care (01) ==
LOC: M INFU 08:15
PROVIDERS: ATTEND Psychiatry & Neurology Neurology
DX: G35 Multiple sclerosis (principal)
CPT/HCPCS: 96365; J2350; J2919

== ENCOUNTER 2025-03-29 07:04 | Outpatient (CLI) | payer MEDICARE, MEDICAID ==
[~2025-03-29] VITALS: Ht 167.6 cm; Wt 64.0 kg
[~2025-03-29 07:04] MED LIST changes: +ALBUTEROL SULFATE 2.5 MG/0.5 ML INH CONCENTRATE NEB SOLN INH PRN; +EPINEPHrine INJ 1 MG/ML 1ML AMP IM PRN; +diphenhydrAMINE 50 MG/ML VIAL IV PRN
[2025-03-29] MEDS: ACETAMINOPHEN 325 MG TAB PO ONE (07:54)
[2025-03-29 08:01] VITALS: BP 138/90; O2SAT 100
[2025-03-29] MEDS: OCRELIZUMAB 600 MG in NS 500 ML IV ONE (08:20)
[2025-03-29 09:20] VITALS: BP 130/88; O2SAT 100
[2025-03-29 09:50] VITALS: BP 124/82; O2SAT 100
[2025-03-29 10:20] VITALS: BP 122/76; O2SAT 100
[2025-03-29 12:20] VITALS: BP 110/66; O2SAT 97
== END 2025-03-29 12:30 | disposition home or self-care (01) ==
LOC: M INFU 07:04
PROVIDERS: ATTEND Psychiatry & Neurology Neurology
DX: G35.A Relapsing-remitting multiple sclerosis (principal)
CPT/HCPCS: 96365; 96366; 96375; J2350; J2919